=== PATIENT | male | born 1955 | race Hispanic/Latino ===

== ENCOUNTER 2018-04-06 00:12 | Observation (INO) | payer OTHER ==
[2018-04-06] MEDS ORDERED: DILAUDID ONE (00:21)
[2018-04-06] MEDS ORDERED: ZOFRAN ONE (00:21)
[2018-04-06] MEDS ORDERED: DILAUDID IV ONE ×3 (00:22→01:01)
[2018-04-06] MEDS ORDERED: ZOFRAN IV ONE (00:22)
--- NOTE | 2018-04-06 00:28 | Emergency Department Report ---
ED Chest Pain HPI - General Chief Complaint: Chest Pain Stated Complaint: CHEST PAIN Time Seen by Provider: 04/06/18 00:19 Source: patient, EMS Mode of arrival: Stretcher Limitations: No Limitations - History of Present Illness Initial Comments: 62-year-old male with a past medical history hyperlipidemia and asthma presents to the hospital in acute distress complaining of severe epigastric pain. Pain was gradual onset over the past hour but now severe and rated 10/10 in intensity. Pain is dull without radiation. He denies nausea, vomiting, or shortness of breath. Patient is diaphoretic and writhing around the bed secondary to discomfort. Patient received aspirin and nitroglycerin prior to arrival without relief. He had similar pain in the past due to "gas" but it was not as severe. Denies cardiac history. Patient did receive aspirin and nitroglycerin prior to arrival without improvement. Patient states that he did have a stress test performed 2 years ago when he was under [employer] insurance in that it was okay. After further pain relief patient was able to provide additional history of present illness. He states that the pain did start like a gas bubble. He had similar pain the night before that dissipated with Lavonne[place]. The pain today started the same way but slowly intensified and became unbearable. - Related Data Allergies Allergy/AdvReac Type Severity Reaction Status Date / Time Penicillins AdvReac Unknown Unverified 01/28/14 10:38 Heart Score - HEART Score History: Slightly suspicious EKG: Normal Age: 45-65 Risk factors: 1-2 risk factors Troponin: < normal limit HEART Score: 2 ED Review of Systems ROS: Stated complaint: CHEST PAIN Other details as noted in HPI Comment: All other systems reviewed and negative ED Past Medical Hx - Past Medical History Previous Medical History?: Yes Hx Asthma: Yes Additional medical history: high roger. - Surgical History Past Surgical History?: No - Social History Smoking Status: Former Smoker Substance Use Type: None ED Physical Exam - General Limitations: No Limitations - Other Other exam information: General: Positive distress Head exam: Atraumatic, normocephalic Eyes exam: Normal appearance, pupils equal reactive to light, extraocular movements intact ENT: Moist mucous membrane, normal oropharynx Neck exam: Normal inspection Respiratory exam: Clear to auscultation bilateral, no wheezes, rales, crackles Cardiovascular: Normal rate and rhythm, normal heart sounds Abdomen: Soft, nondistended, epigastric tenderness, no rebound or guarding Extremity: Full range of motion normal inspection no deformity Back: Normal Inspection, full range of motion, no tenderness Neurologic: Alert, oriented x3, cranial nerves intact, no motor or sensory deficit Skin: Diaphoretic ED Course Vital Signs 04/06/18 04/06/18 04/06/18 00:20 00:36 00:40 Temperature 97 F L Pulse Rate 79 69 Respiratory 27 H 24 28 H Rate Blood Pressure 194/102 O2 Sat by Pulse 100 99 Oximetry 04/06/18 04/06/18 04/06/18 00:44 00:46 00:50 Temperature Pulse Rate 47 L 62 Respiratory 19 26 H 24 Rate Blood Pressure O2 Sat by Pulse 100 100 Oximetry 04/06/18 04/06/18 04/06/18 00:55 01:00 01:01 Temperature Pulse Rate Respiratory 24 Rate Blood Pressure 136/90 127/88 O2 Sat by Pulse 100 100 Oximetry 04/06/18 04/06/18 04/06/18 01:04 01:10 01:16 Temperature Pulse Rate 52 L 54 L Respiratory 15 24 17 Rate Blood Pressure 127/88 113/95 O2 Sat by Pulse 100 100 Oximetry 04/06/18 04/06/18 04/06/18 01:30 01:57 02:00 Temperature Pulse Rate 60 70 71 Respiratory 14 17 17 Rate Blood Pressure 113/95 165/83 165/83 O2 Sat by Pulse 93 100 100 Oximetry 04/06/18 04/06/18 04/06/18 02:15 02:30 02:46 Temperature Pulse Rate 58 L 73 77 Respiratory 16 13 14 Rate Blood Pressure 160/81 150/80 160/81 O2 Sat by Pulse 94 99 94 Oximetry 04/06/18 04/06/18 03:00 03:30 Temperature Pulse Rate 73 70 Respiratory 17 19 Rate Blood Pressure 126/75 114/60 O2 Sat by Pulse 96 96 Oximetry - Reevaluation(s) Reevaluation #1: 04/06/18 03:59 pt required 3 separate Dilaudid 1 mg to achieve adequate pain control and to obtain an ekg without artifact Reevaluation #2: 04/06/18 04:13 Patient feels much better, comfortable, and pain-free. - Consultations Consultation #1: 04/06/18 04:01 Case d/w Dr Huerta at [facility], approves admission here ED Medical Decision Making - Lab Data Result diagrams: 04/06/18 00:32 04/06/18 00:32 Lab Results 04/06/18 04/06/18 04/06/18 Range/Units 00:32 00:32 00:32 WBC 8.0 (4.5-11.0) K/mm3 RBC 5.03 (3.65-5.03) M/mm3 Hgb 14.1 (11.8-15.2) gm/dl Hct 42.3 (35.5-45.6) % MCV 84 (84-94) fl MCH 28 (28-32) pg MCHC 33 (32-34) % RDW 13.4 (13.2-15.2) % Plt Count 220 (140-440) K/mm3 Lymph % (Auto) 45.4 H (13.4-35.0) % [place] % (Auto) 7.1 (0.0-7.3) % Eos % (Auto) 3.2 (0.0-4.3) % Baso % (Auto) 0.6 (0.0-1.8) % Lymph # 3.6 (1.2-5.4) K/mm3 [place] # 0.6 (0.0-0.8) K/mm3 Eos # 0.3 (0.0-0.4) K/mm3 Baso # 0.0 (0.0-0.1) K/mm3 Seg Neutrophils % 43.7 (40.0-70.0) % Seg Neutrophils # 3.5 (1.8-7.7) K/mm3 PT 12.3 (12.2-14.9) Sec. INR 0.87 (0.87-1.13) APTT 26.7 (24.2-36.6) Sec. Sodium 137 (137-145) mmol/L Potassium 4.3 (3.6-5.0) mmol/L Chloride 96.3 L (98-107) mmol/L Carbon Dioxide 25 (22-30) mmol/L Anion Gap 20 mmol/L BUN 17 (9-20) mg/dL Creatinine 0.9 (0.8-1.5) mg/dL Estimated GFR > 60 ml/min BUN/Creatinine Ratio 19 % Glucose 226 H (75-100) mg/dL Calcium 9.1 (8.4-10.2) mg/dL Total Bilirubin 1.00 (0.1-1.2) mg/dL AST 14 (5-40) units/L ALT 22 (7-56) units/L Alkaline Phosphatase 65 (35-129) units/L Total Creatine Kinase 94 (55-170) units/L CK-MB (CK-2) 2.1 (0.0-4.0) ng/mL CK-MB (CK-2) Rel Index 2.2 (0-4) Troponin T < 0.010 (0.00-0.029) ng/mL Total Protein 5.9 L (6.3-8.2) g/dL Albumin 4.0 (3.9-5) g/dL Albumin/Globulin Ratio 2.1 % Lipase 40 (13-60) units/L Blood Type Antibody Screen 04/06/18 04/06/18 Range/Units 00:41 03:20 WBC (4.5-11.0) K/mm3 RBC (3.65-5.03) M/mm3 Hgb (11.8-15.2) gm/dl Hct (35.5-45.6) % MCV (84-94) fl MCH (28-32) pg MCHC (32-34) % RDW (13.2-15.2) % Plt Count (140-440) K/mm3 Lymph % (Auto) (13.4-35.0) % [place] % (Auto) (0.0-7.3) % Eos % (Auto) (0.0-4.3) % Baso % (Auto) (0.0-1.8) % Lymph # (1.2-5.4) K/mm3 [place] # (0.0-0.8) K/mm3 Eos # (0.0-0.4) K/mm3 Baso # (0.0-0.1) K/mm3 Seg Neutrophils % (40.0-70.0) % Seg Neutrophils # (1.8-7.7) K/mm3 PT (12.2-14.9) Sec. INR (0.87-1.13) APTT (24.2-36.6) Sec. Sodium (137-145) mmol/L Potassium (3.6-5.0) mmol/L Chloride (98-107) mmol/L Carbon Dioxide (22-30) mmol/L Anion Gap mmol/L BUN (9-20) mg/dL Creatinine (0.8-1.5) mg/dL Estimated GFR ml/min BUN/Creatinine Ratio % Glucose (75-100) mg/dL Calcium (8.4-10.2) mg/dL Total Bilirubin (0.1-1.2) mg/dL AST (5-40) units/L ALT (7-56) units/L Alkaline Phosphatase (35-129) units/L Total Creatine Kinase (55-170) units/L CK-MB (CK-2) (0.0-4.0) ng/mL CK-MB (CK-2) Rel Index (0-4) Troponin T < 0.010 (0.00-0.029) ng/mL Total Protein (6.3-8.2) g/dL Albumin (3.9-5) g/dL Albumin/Globulin Ratio % Lipase (13-60) units/L Blood Type A POSITIVE Antibody Screen Negative - EKG Data -: EKG Interpreted by Al EKG shows normal: sinus rhythm, axis (qrs -16), QRS complexes (qrsd 105), ST-T waves Rate: bradycardia (46) - Radiology Data Radiology results: report reviewed Read by radiologist CT angiogram chest: No evidence of pulmonary embolus or aortic dissection. No acute process. Hepatic steatosis. Ct angio abd/pelvis IMPRESSION: Hepatic steatosis. Normal-appearing gallbladder and biliary tree. Moderate distended stomach containing debris. No evidence of wall thickening to suggest gastritis. No evidence of mesenteric ischemia. Heterogeneous enhancement of the portal vein as described. As to whether this is related to flow dynamics versus partial thrombosis is uncertain. Right upper quadrant sonography with attention to the portal vein is recommended for definitive evaluation. Appendix not identified. Arthritic changes in the lower lumbar spine. cxr: naf - Medical Decision Making Other differential esophageal spasm Patient had a very dramatic presentation with diaphoresis and extreme pain. No signs of STEMI or elevation in troponin. CT does not reveal any dissection and only significant for moderate distention of the stomach as well as partial flow to the portal vein. Patient is now more relaxed with a normal blood pressure with pain control. Patient does have a history of GERD and symptoms are likely secondary to GI cause but pt does have significant risk factors. Case discussed with [facility] physician who agreed to allow patient to be admitted here for cardiac stress testing given her risk factors. They did not have any cardiac workup on record. - Differential Diagnosis ND, unstable angina, pancreatitis, dissection, perforated viscus, esopageal Critical Care Time: No Critical care attestation.: If time is entered above; I have spent that time in minutes in the direct care of this critically ill patient, excluding procedure time. ED Disposition Clinical Impression: Epigastric pain, Chest pain, Hyperlipemia, Former smoker Disposition: DC-01 TO HOME OR SELFCARE Is pt being admited?: No Does the pt Need Aspirin: No Condition: Stable Time of Disposition: 04:07 (Dr Carroll/hosp)
[2018-04-06 01:05] LABS: Basophils % (Auto) 0.6 % (0.0-1.8); Eosinophils # (Auto) 0.3 K/mm3 (0.0-0.4); Eosinophils % (Auto) 3.2 % (0.0-4.3); Hematocrit 42.3 % (35.5-45.6); Hemoglobin 14.1 gm/dl (11.8-15.2); Lymphocytes # (Auto) 3.6 K/mm3 (1.2-5.4); Lymphocytes % (Auto) 45.4 % (13.4-35.0); Mean Corpuscular HGB Conc 33 % (32-34); Mean Corpuscular Hemoglobin 28 pg (28-32); Mean Corpuscular Volume 84 fl (84-94); Monocytes # (Auto) 0.6 K/mm3 (0.0-0.8); Monocytes % (Auto) 7.1 % (0.0-7.3); Platelet Count 220 K/mm3 (140-440); Red Blood Count 5.03 M/mm3 (3.65-5.03); Red Cell Distribution Width 13.4 % (13.2-15.2)
[2018-04-06 01:06] LABS: INR 0.87 (0.87-1.13); Partial Thromboplastin Time 26.7 Sec. (24.2-36.6)
[2018-04-06 01:20] LABS: Creatine Kinase MB 2.1 ng/mL (0.0-4.0)
[2018-04-06 01:21] LABS: Alanine Aminotransferase 22 units/L (7-56); BUN/Creatinine Ratio 19; Blood Urea Nitrogen 17 mg/dL (9-20); Calcium 9.1 mg/dL (8.4-10.2); Hemolysis Index 2; Lipase 40 units/L (13-60)
--- NOTE | 2018-04-06 01:47 | XRay Report ---
FINAL REPORT PROCEDURE: XR CHEST 1V AP TECHNIQUE: Chest radiograph anteroposterior view. CPT 88486 HISTORY: Chest pain. COMPARISON: No prior studies are available for comparison. FINDINGS: Heart: Normal. Mediastinum/Vessels: Normal. Lungs/Pleural space: Normal. Bony thorax: Mild degenerative changes of the spine. Life support devices: None. IMPRESSION: No radiographic evidence of acute cardiopulmonary disease.
--- NOTE | 2018-04-06 02:40 | Cat Scan Report ---
FINAL REPORT EXAM: CT ANGIO ABDOMEN PELVIS HISTORY: epigastric pain, diaphoresis TECHNIQUE: A CT angiogram was obtained of the abdomen and pelvis following the intravenous injection of 100 cc of Omnipaque 350. Rotational, sagittal, and coronal reconstructions were reviewed. FINDINGS: The lung bases are clear. Pleural fluid is not seen. The liver is normal size reveals diminished attenuation compatible with hepatic steatosis. The gallbladder, biliary tree, pancreas, spleen, and adrenal glands appear normal. The kidneys enhance normally. There are peripelvic cysts in left kidney. There is no evidence hydronephrosis. The abdominal aorta is normal in caliber. The celiac artery, and superior mesenteric arteries are widely patent the inferior mesenteric artery is widely patent. Both renal arteries are widely patent. On the axial and reconstruction images there is intraluminal filling defects in the portal vein. With this is related to flow or partial thrombus is uncertain. The bowel loops are normal in caliber and course. The stomach is moderately distended with debris. There is no evidence of gastric wall thickening. There is no evidence of free fluid or adenopathy. The appendix is not seen. In the pelvis the prostate gland and bladder appear normal. The skeletal structures reveal mild arthritic changes lower lumbar spine IMPRESSION: Hepatic steatosis. Normal-appearing gallbladder and biliary tree. Moderate distended stomach containing debris. No evidence of wall thickening to suggest gastritis. No evidence of mesenteric ischemia. Heterogeneous enhancement of the portal vein as described. As to whether this is related to flow dynamics versus partial thrombosis is uncertain. Right upper quadrant sonography with attention to the portal vein is recommended for definitive evaluation. Appendix not identified. Arthritic changes in the lower lumbar spine.
[2018-04-06] MEDS ORDERED: SODIUM CHLORIDE FLUSH SYRINGE 10 ML IV PRN (04:49)
[2018-04-06] MEDS ORDERED: TYLENOL PO PRN (04:49)
[2018-04-06] MEDS ORDERED: MORPHINE IV PRN (04:49)
[2018-04-06] MEDS ORDERED: ZOFRAN IV PRN (04:49)
--- NOTE | 2018-04-06 05:14 | History and Physical Report ---
History of Present Illness Date of examination: 04/06/18 History of present illness: 62 -year-old man history of GERD, hyperlipidemia, comes emergency room with complaints of pain in the epigastric area which started last night. He describes it as a trapped gas bubble. He had these symptoms before, he took Lavonne[place] which led to relief of the symptoms. Patient stated that he drank some Coca-Cola last night to try to belch to get rid of the gas bubble without any relief, he took Lavonne[place], still no relief. His pain was constant, intensity 9/10, no radiation, I cannot identify any exacerbating factors. He stated he was very diaphoretic, his blood pressure went up, no nausea vomiting, shortness of breath, palpitation Review of systems Constitutional: no weight loss, chills Ears, eyes, nose, mouth and throat: no nasal congestion, no nasal discharge, no sinus pressure, no vision change, no red eye. Neck: No neck pain or rigidity. Cardiovascular: no palpitations Respiratory: No cough, shortness of breath Gastrointestinal: no abdominal pain, hematochezia Genitourinary : no dysuria, frequency , no hematuria Musculoskeletal: no joint swelling or muscle ache Integumentary: no rash, no pruritis Neurological: no parathesias, no numbness, no focal weakness Endocrine: no cold or heat intolerance, no polyuria or polydipsia Hematologic/Lymphatic: no easy bruising, no easy bleeding, no gland swelling Allergic/Immunologic: no urticaria, no angioedema. PAST MEDICAL HISTORY: GERD, hyperlipidemia PAST SURGICAL HISTORY: Left knee, kidney surgery as a child SOCIAL HISTORY: Denies alcohol, tobacco, drugs FAMILY HISTORY: Hypertension Medications and Allergies Allergies Allergy/AdvReac Type Severity Reaction Status Date / Time Penicillins AdvReac Unknown Verified 04/06/18 04:56 Active Meds: Active Medications Acetaminophen (Tylenol) 650 mg PO Q4H PRN PRN Reason: Pain MILD(1-3)/Fever >100.5/PETERSEN Enoxaparin Sodium (Lovenox) 40 mg SUB-Q QDAY@1000 FAITH Morphine Sulfate (Morphine) 2 mg IV Q4H PRN PRN Reason: Pain, Moderate (4-6) Ondansetron HCl (Zofran) 4 mg IV Q4H PRN PRN Reason: Nausea And Vomiting Sodium Chloride (Sodium Chloride Flush Syringe 10 Ml) 10 ml IV BID FAITH Sodium Chloride (Sodium Chloride Flush Syringe 10 Ml) 10 ml IV PRN PRN PRN Reason: LINE FLUSH Exam - Physical Exam Narrative exam: Gen. appearance: Patient lying in bed, no apparent distress HEENT: Normocephalic, atraumatic, pupils equally round and reactive to light, extraocular movement intact, and no sclericterus,. No JVD or thyromegaly or nodule,neck supple, no carotid bruit ,mucous membranes moist, no exudate or erythema Heart: S1, S2, regular rate and rhythm Lungs: Clear to auscultation bilaterally, breathing comfortable Abdomen: Positive bowel sounds, nontender, nondistended, no organomegaly Extremity: No edema, cyanosis, clubbing Skin: No rash, nodules, warm, dry Neuro: Oriented 3, cranial nerves II-12 intact, speech is fluent, motor and sensory intact - Constitutional Vitals: Temp Pulse Resp BP Pulse Ox 97 F L 81 19 130/62 96 04/06/18 00:20 04/06/18 04:00 04/06/18 04:00 04/06/18 04:00 04/06/18 04:00 Results - Labs CBC & Chem 7: 04/06/18 00:32 04/06/18 00:32 Labs: Abnormal lab results 04/06/18 04/06/18 Range/Units 00:32 00:32 Lymph % (Auto) 45.4 H (13.4-35.0) % Chloride 96.3 L (98-107) mmol/L Glucose 226 H (75-100) mg/dL Total Protein 5.9 L (6.3-8.2) g/dL - Imaging and Cardiology CT scan - abdomen: report reviewed CT scan - chest: pending CT scan - pelvis: report reviewed Assessment and Plan Assessment Epigastric pain Possible portal vein thrombosis GERD Hyperlipidemia Plan Admit to medicine Check cardiac enzymes, ultrasound abdomen Consult GI, IV morphine, DVT prophylaxis Follow CT chest, pending
[2018-04-06 05:58] LABS: Creatine Kinase MB 3.2 ng/mL (0.0-4.0)
[2018-04-06 06:11] LABS: Bilirubin,Urine NEG (Negative); Blood,Urine NEG (Negative); Color,Urine Yellow (Yellow); Mucus,Urine FEW /HPF; Protein,Urine <15 mg/dL mg/dL (Negative); Urobilinogen,Urine < 2.0 mg/dL (<2.0)
--- NOTE | 2018-04-06 06:24 | Ultrasound Report ---
FINAL REPORT EXAM: US ABDOMEN LIMITED HISTORY: possible portal thrombosis TECHNIQUE: Limited sonographic evaluation was obtained of the upper abdomen. FINDINGS: The gallbladder is normal size reveals generalized wall thickening measuring to 5.5 mm in thickness. Stones are not seen. The common bile duct measures 3.7 mm in diameter. The liver is normal size and echotexture. The aorta is only partially seen proximally measuring 12 mm in thickness. The right kidney is normal size contour and echotexture measures 11.2 cm x 4.8 cm x 5.2 cm. The left kidney and spleen are not adequately seen. Pancreas is also obscured by bowel gas. Doppler interrogation of the portal vein and hepatic veins was not done because obscuring bowel gas IMPRESSION: Because of obscuring bowel gas Doppler interrogation the portal vein and hepatic veins was not possible. Generalized gallbladder wall thickening. No evidence of gallstones or Linder sign otherwise. Limited study because of obscuring bowel gas in the upper abdomen.
--- NOTE | 2018-04-06 09:56 | Cat Scan Report ---
FINAL REPORT EXAM: CT ANGIO CHEST HISTORY: epigastric pain, diaphoresis TECHNIQUE: A CT angiogram was performed following the intravenous injection of 100 cc of Omnipaque 350. Rotational, sagittal, and coronal MIP reconstructions were reviewed. FINDINGS: There is no evidence of pulmonary embolus or aortic dissection. The thoracic aorta is normal in caliber. The heart size is normal. Pericardial fluid is not seen. There is no evidence of adenopathy. The lungs are clear. Pleural fluid is not seen. In the upper abdomen the right adrenal gland appears normal. The left adrenal gland is not seen. The liver reveals changes compatible hepatic steatosis. The skeletal structures reveal multilevel disc degeneration in the dorsal spine. At the thoracic inlet the thyroid gland appears normal. IMPRESSION: No evidence of pulmonary embolus or aortic dissection. No acute process in the chest. Hepatic steatosis.
[2018-04-06] MEDS ORDERED: SODIUM CHLORIDE FLUSH SYRINGE 10 ML IV SCH (10:00)
[2018-04-06] MEDS ORDERED: LOVENOX SUB-Q SCH ×2 (10:00)
--- NOTE | 2018-04-06 10:18 | Progress Note ---
Subjective Date of service: 04/06/18 Objective - Constitutional Vitals: Vital Signs - 12hr 04/06/18 04/06/18 04/06/18 00:20 00:36 00:40 Temperature 97 F L Pulse Rate 79 69 Respiratory 27 H 24 28 H Rate Blood Pressure 194/102 O2 Sat by Pulse 100 99 Oximetry 04/06/18 04/06/18 04/06/18 00:44 00:46 00:50 Temperature Pulse Rate 47 L 62 Respiratory 19 26 H 24 Rate Blood Pressure O2 Sat by Pulse 100 100 Oximetry 04/06/18 04/06/18 04/06/18 00:55 01:00 01:01 Temperature Pulse Rate Respiratory 24 Rate Blood Pressure 136/90 127/88 O2 Sat by Pulse 100 100 Oximetry 04/06/18 04/06/18 04/06/18 01:04 01:10 01:16 Temperature Pulse Rate 52 L 54 L Respiratory 15 24 17 Rate Blood Pressure 127/88 113/95 O2 Sat by Pulse 100 100 Oximetry 04/06/18 04/06/18 04/06/18 01:30 01:57 02:00 Temperature Pulse Rate 60 70 71 Respiratory 14 17 17 Rate Blood Pressure 113/95 165/83 165/83 O2 Sat by Pulse 93 100 100 Oximetry 04/06/18 04/06/18 04/06/18 02:15 02:30 02:46 Temperature Pulse Rate 58 L 73 77 Respiratory 16 13 14 Rate Blood Pressure 160/81 150/80 160/81 O2 Sat by Pulse 94 99 94 Oximetry 04/06/18 04/06/18 04/06/18 03:00 03:30 04:00 Temperature Pulse Rate 73 70 81 Respiratory 17 19 19 Rate Blood Pressure 126/75 114/60 130/62 O2 Sat by Pulse 96 96 96 Oximetry 04/06/18 04/06/18 04/06/18 04:30 04:45 05:00 Temperature Pulse Rate 75 55 L Respiratory 12 Rate Blood Pressure 137/79 126/62 129/62 O2 Sat by Pulse 98 99 98 Oximetry 04/06/18 04/06/18 04/06/18 05:15 05:21 06:30 Temperature 95.9 F L 97.6 F Pulse Rate 66 60 Respiratory 16 Rate Blood Pressure 132/68 117/63 O2 Sat by Pulse 97 96 Oximetry 04/06/18 07:58 Temperature 97.6 F Pulse Rate 67 Respiratory 20 Rate Blood Pressure 133/71 O2 Sat by Pulse 95 Oximetry - Labs CBC & Chem 7: 04/06/18 00:32 04/06/18 00:32 Labs: Abnormal lab results 04/06/18 04/06/18 04/06/18 Range/Units 00:32 00:32 05:50 Lymph % (Auto) 45.4 H (13.4-35.0) % Chloride 96.3 L (98-107) mmol/L Glucose 226 H (75-100) mg/dL Total Protein 5.9 L (6.3-8.2) g/dL Ur Specific Transfer 1.060 H (1.003-1.030)
[2018-04-06] MEDS ORDERED: PEPCID IV SCH (11:00)
--- NOTE | 2018-04-06 12:10 | Consultation ---
History of Present Illness Consult date: 04/06/18 Requesting physician: CAROL MERCADO Consult reason: chest pain History of present illness: 6the pt is a 62-year-old male with a past medical history significant for HLP, asthma and former tobacco use. He is previously unknown to our practice. He is followed by [facility]. He presented with complaints of severe epigastric pain. 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 He describes the pain as a nonexertional, nonradiating, bubble-like pressure in the epigastric area which was "unbearable". The pain was associated with diaphoresis. Patient received aspirin and nitroglycerin prior to arrival without relief. The pain lasted for approx 2 hours and was alleviated by IV dilaudid administered in the ED. He reports that he has experienced similar pain before and that the pain is usually alleviated by Lavonne-[place]. He denies any SOB, palpitations, n/v, dizziness or syncope. Patient states that he did have a stress test performed 3 years ago when he was under 53 [employer] [facility] insurance and that this test was normal to his knowledge. On evaluation, he denies any current complaints. He has been scheduled for lexiscan MPI stress test this AM per primary. Past History Past Medical History: hyperlipidemia Social history: , lives with family, smoking (former). denies: alcohol abuse, prescription drug abuse Family history: diabetes Medications and Allergies Allergies Allergy/AdvReac Type Severity Reaction Status Date / Time Penicillins AdvReac Unknown Verified 04/06/18 04:56 Active Meds: Active Medications Acetaminophen (Tylenol) 650 mg PO Q4H PRN PRN Reason: Pain MILD(1-3)/Fever >100.5/PETERSEN Enoxaparin Sodium (Lovenox) 40 mg SUB-Q QDAY@1000 FAITH Famotidine (Pepcid) 20 mg IV QDAY FAITH Morphine Sulfate (Morphine) 2 mg IV Q4H PRN PRN Reason: Pain, Moderate (4-6) Ondansetron HCl (Zofran) 4 mg IV Q4H PRN PRN Reason: Nausea And Vomiting Sodium Chloride (Sodium Chloride Flush Syringe 10 Ml) 10 ml IV BID FAITH Sodium Chloride (Sodium Chloride Flush Syringe 10 Ml) 10 ml IV PRN PRN PRN Reason: LINE FLUSH Review of Systems Constitutional: sweats, no weight loss, no weight gain, no fever, no chills Ears, nose, mouth and throat: no ear pain, no nose pain, no sinus pressure, no sinus pain Cardiovascular: no chest pain, no orthopnea, no palpitations, no rapid/ irregular heart beat, no edema, no syncope, no lightheadedness, no shortness of breath, no dyspnea on exertion, no paroxysmal nocturnal dyspnea, no high blood pressure, no leg edema, no decreased exercise tolerance Respiratory: no cough, no shortness of breath, no dyspnea on exertion, no congestion, no wheezing, no pain on inspiration Gastrointestinal: abdominal pain (epigastric), no nausea, no vomiting, no diarrhea, no constipation, no change in bowel habits Genitourinary Male: no dysuria, no hematuria, no flank pain, no discharge, no urinary frequency, no urinary hesitancy Musculoskeletal: no neck stiffness, no neck pain, no shooting arm pain, no arm numbness/tingling, no low back pain, no shooting leg pain, no leg numbness/ tingling, no redness of joints Integumentary: no rash, no pruritis, no redness, no sores, no wounds Neurological: no head injury, no paralysis, no weakness, no parathesias, no numbness, no tingling, no seizures, no syncope Psychiatric: no anxiety Endocrine: no cold intolerance, no heat intolerance Hematologic/Lymphatic: no easy bruising, no easy bleeding, no lymphadenopathy Allergic/Immunologic: no urticaria, no wheezing, no persistent infections Physical Examination Vital Signs Temp Pulse Resp BP Pulse Ox 97 F L 79 22 194/102 100 04/06/18 00:20 04/06/18 00:20 04/06/18 00:20 04/06/18 00:20 04/06/18 00:20 General appearance: no acute distress HEENT: Positive: PERRL, Normocephaly, Mucus Membranes Moist Neck: Positive: neck supple, trachea midline Cardiac: Positive: Reg Rate and Rhythm, S1/S2 Lungs: Positive: Decreased Breath Sounds Neuro: Positive: Grossly Intact, Cranial Nerve 2-12 Intact Abdomen: Positive: Soft. Negative: Tender Skin: Positive: Clear. Negative: Rash, Wound Musculoskeletal: No Fluid Collection, No Pain, Normal Range of Motion Extremities: Absent: edema Results 04/06/18 00:32 04/06/18 00:32 Cardiac Enzymes 04/06/18 04/06/18 04/06/18 Range/Units 00:32 05:20 10:26 AST 14 (5-40) units/L CK-MB (CK-2) 2.1 3.2 3.0 (0.0-4.0) ng/mL Coagulation 04/06/18 Range/Units 00:32 PT 12.3 (12.2-14.9) Sec. INR 0.87 (0.87-1.13) APTT 26.7 (24.2-36.6) Sec. CBC 04/06/18 Range/Units 00:32 WBC 8.0 (4.5-11.0) K/mm3 RBC 5.03 (3.65-5.03) M/mm3 Hgb 14.1 (11.8-15.2) gm/dl Hct 42.3 (35.5-45.6) % Plt Count 220 (140-440) K/mm3 Lymph # 3.6 (1.2-5.4) K/mm3 [place] # 0.6 (0.0-0.8) K/mm3 Eos # 0.3 (0.0-0.4) K/mm3 Baso # 0.0 (0.0-0.1) K/mm3 Comprehensive Metabolic Panel 04/06/18 Range/Units 00:32 Sodium 137 (137-145) mmol/L Potassium 4.3 (3.6-5.0) mmol/L Chloride 96.3 L (98-107) mmol/L Carbon Dioxide 25 (22-30) mmol/L BUN 17 (9-20) mg/dL Creatinine 0.9 (0.8-1.5) mg/dL Glucose 226 H (75-100) mg/dL Calcium 9.1 (8.4-10.2) mg/dL AST 14 (5-40) units/L ALT 22 (7-56) units/L Alkaline Phosphatase 65 (35-129) units/L Total Protein 5.9 L (6.3-8.2) g/dL Albumin 4.0 (3.9-5) g/dL - Imaging and Cardiology EKG: report reviewed, image reviewed EKG interpretations - Telemetry EKG Rhythm: Sinus Rhythm - EKG Sinus rhythms and dysrhythmias: sinus rhythm AV and intraventricular conduction: intraventricular conducti Assessment and Plan Assessment: Epigastric pain - currently resolved HLP H/o asthma Former tobacco use Plan: S/p lexiscan MPI stress test this AM which was negative for ischemia, EF 62%. Currently stable cardiac status. Nothing further to add from cardiac perspective at this time. Will follow on as needed basis. Suspect epigastric pain is gastrointestinal in etiology. Await GI consultation. Assessment and plan reviewed with pt and pt's at bedside. The patient has been seen in conjunction with Dr. Metzger who agrees with the assessment and plan of care.
[2018-04-06 16:43] VITALS: BP 114/65
--- NOTE | 2018-04-06 17:06 | Discharge Summary ---
Providers - Providers Date of Admission: 04/06/18 04:49 Date of discharge: 04/06/18 (]) Attending physician: CAROL MERCADO 04/06/18 04:49 Consult to Physician [CONS] Routine Comment: Consulting Provider: YOAV WHITE Physician Instructions: Reason For Exam: ab ct abap Primary care physician: ACTIVITY MANAGER Hospitalization Reason for admission: chest pain, GERD Condition: Stable Pertinent studies: stress test - lexiscan which was negative Procedures: none Hospital course: Patient is a 62-year-old male with a past medical history significant for HLP, asthma and former tobacco use. He is previously unknown to our practice. He is followed by [facility]. He presented with complaints of severe epigastric pain. 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 He describes the pain as a nonexertional, nonradiating, bubble-like pressure in the epigastric area which was "unbearable". The pain was associated with diaphoresis. Patient received aspirin and nitroglycerin prior to arrival without relief. The pain lasted for approx 2 hours and was alleviated by IV dilaudid administered in the ED. He reports that he has experienced similar pain before and that the pain is usually alleviated by Lavonne-[place]. He denies any SOB, palpitations, n/v, dizziness or syncope. Patient states that he did have a stress test performed 3 years ago when he was under [employer] insurance and that this test was normal to his knowledge. On evaluation, he denies any current complaints. He has been scheduled for lexiscan MPI stress test whic was negative. He is being discharged to f/u with PCP in 3-5 days Disposition: DC-01 TO HOME OR SELFCARE Core Measure Documentation - Palliative Care Palliative Care/ Comfort Measures: Not Applicable - Core Measures Any of the following diagnoses?: none Exam - Constitutional Vitals: Temp Pulse Resp BP Pulse Ox 98.0 F 74 20 114/65 96 04/06/18 14:49 04/06/18 14:49 04/06/18 14:49 04/06/18 14:49 04/06/18 14:49 General appearance: Present: no acute distress, well-nourished - EENT Eyes: Present: PERRL - Neck Neck: Present: supple, normal ROM - Respiratory Respiratory effort: normal Respiratory: bilateral: CTA - Cardiovascular Heart Sounds: Present: S1 & S2. Absent: rub, click - Extremities Extremities: pulses symmetrical, No edema Peripheral Pulses: within normal limits - Abdominal General gastrointestinal: Present: soft, non-tender, non-distended, normal bowel sounds Male genitourinary: Present: normal - Integumentary Integumentary: Present: clear, warm, dry - Musculoskeletal Musculoskeletal: gait normal, strength equal bilaterally - Psychiatric Psychiatric: appropriate mood/affect, intact judgment & insight - Neurologic Neurologic: CNII-XII intact, moves all extremities Plan Activity: advance as tolerated Weight Bearing Status: Weight Bear as Tolerated Diet: low cholesterol Prescriptions: Omeprazole 20 mg PO QAM #30 tablet.
--- NOTE | 2018-04-07 05:25 | Consultation ---
REFERRING PHYSICIAN: Paresh Gunderson MD INDICATION: Epigastric pain. HISTORY OF PRESENT ILLNESS: The patient is a 62-year-old white male who has been seen by GI for epigastric pain. The patient reports last night, he started having some epigastric pain and thought it was what he describes as a trapped gas bubble. He reports he tried some Lavonne-[place] and then some Coca-Cola, but symptoms persisted and subsequently came to the Emergency Room. He reported some diaphoresis and some diaphoresis. He reports no nausea, vomiting and denies any dysphagia. Denies any lower GI symptoms including diarrhea, constipation or rectal bleeding. The patient subsequently came to the Emergency Room, was admitted and GI consulted. The patient had a CT scan in the Emergency Room with possible thrombus portal vein. The patient denies any known history of liver disease or liver related problems in the past. PAST MEDICAL HISTORY: 1. GERD. 2. High cholesterol. PAST SURGICAL HISTORY: Knee surgery and kidney surgery as a child. MEDICATIONS: See chart. ALLERGIES: PENICILLIN. SOCIAL HISTORY: Denies alcohol, tobacco or drug abuse. FAMILY HISTORY: Negative for colon cancer. REVIEW OF SYSTEMS: GENERAL: Reports mild weakness. HEENT: No visual complaints or tinnitus. PULMONARY: Denies shortness of breath, coughing or chest pain. GASTROINTESTINAL: Reports epigastric pain, now resolved. All points of 13-point review of systems negative. PHYSICAL EXAMINATION: VITAL SIGNS: Temperature 97.6, pulse 60, respirations 20, blood pressure 133/71. GENERAL: Fairly nourished white male in no acute distress. HEENT: Pupils are equal, round and reactive. PULMONARY: Rhonchi. CARDIOVASCULAR: Regular rhythm. Normal S1, S2. ABDOMEN: Positive bowel sounds, soft. SKIN: No obvious rashes. LABORATORY DATA: Pertinent for white count of 8, hemoglobin and hematocrit of 14 and 42.3, platelet count 220. Coags within normal limits. Chem-7 within normal limits. LFTs within normal limits. CT scan showed hepatic steatosis, moderately distended stomach without debris and question of shadowing raising possibility of portal vein thrombosis. ASSESSMENT AND PLAN: A 62-year-old male presents with epigastric pain, now admitted for his symptom. The patient denies any nausea or vomiting. He reports he has never had symptoms like this in the past. The patient reports since coming to the Emergency Room and given a shot of Dilaudid, all his symptoms have completely resolved. I have discussed with him the finding on CT scan, raising possibility of portal vein thrombosis. The patient feels that given his normal LFTs that any further evaluation should be done as an outpatient. He is awake. He reports that once cleared by Cardiology, he wants to go home. I have discussed with him at length. Management is noted below. PLAN: 1. Review CT scan. 2. Follow labs. 3. Diet as tolerated. 4. The patient reports he will go home today and will follow up with GI for further evaluation if necessary as an outpatient. I have discussed with the patient that if pain should recur to contact my office. JOB# [id number] MIGUEL/LUISA JOSEPH
== END 2018-04-06 17:45 | disposition home or self-care (01) ==
LOC: ED 00:12 → INTOOBSV 04:49 → 3A 04:49
PROVIDERS: ADMIT Internal Medicine; ATTEND Family Medicine
DX: R10.13 Epigastric pain (principal); E78.5 Hyperlipidemia, unspecified; K21.9 Gastro-esophageal reflux disease without esophagitis; Z82.49 Family history of ischemic heart disease and other diseases of the circulatory system
CPT/HCPCS: 36415; 71045; 71275; 74174; 76705; 78452; 80053; 81001; 82550; 82553; 83036; 83690; 84484; 85025; 85610; 85730; 86850; 86900; 86901; 93005; 93010; 93017; 96374; 96375; 96376; 99284; A9502; G0378; J1170; J1650; J2405; Q9967